=== PATIENT | female | born 1980 | race Caucasian/White ===

== ENCOUNTER 2016-10-10 09:36 | Emergency (ER) | payer OTHER ==
[2016-10-10] MEDS ORDERED: MELOXICAM15 M1 PO (11:38)
[2016-10-10] MEDS ORDERED: ADVAIR 100-501 EACH PO (11:38)
[2016-10-10] MEDS ORDERED: ASPIRIN81 M1 PO (11:38)
[2016-10-10] MEDS ORDERED: MULTIPLE VITAM1 EAC4 PO (11:38)
[2016-10-10] MEDS ORDERED: BIRTH CONTROL PO (11:38)
[2016-10-10] MEDS ORDERED: FLONASE ALLERG9.9 ML (11:38)
[2016-10-10] MEDS ORDERED: KRILL OIL PO (11:39)
[2016-10-10 12:53] LABS: BASO % 0.1 % (0-2); EOSINOPHIL ABSOLUTE COUNT 0.1 tho/cmm (0.0-0.7); HCT-HEMATOCRIT 38.8 % (34.0-49.0); HGB-HEMOGLOBIN 13.2 gm/dl (12.0-15.5); IMMATURE GRANULOCYTES ABSOLUTE 0.03 tho/cmm (0-0.03); IMMATURE GRANULOCYTES PERCENT 0.2 % (0-0.3); LYMPH % 11.3 % (20-45); LYMPH ABSOLUTE COUNT 1.6 tho/cmm (0.8-4.5); MCH (MEAN CORPUSCULAR HGB) 28.4 pg (28.0-32.0); MCV (MEAN CELL VOLUME) 83.6 fl (82.0-96.0); MEAN PLATELET VOLUME 10.5 cmc (9.4-12.4); MONO % 3.8 % (0-12); MONOCYTE ABSOLUTE COUNT 0.5 tho/cmm (0.0-1.2); NEUTROPHIL ABSOLUTE COUNT 11.6 tho/cmm (1.6-8.0); NEUTROPHIL-AUTOMATED 11.6 tho/cmm (1.6-8.0); NEUTROPHILS % 83.6 % (40-80); PLATELET COUNT 269 tho/cmm (150-450); RED BLOOD COUNT 4.64 mil/cmm (4.00-5.20); WHITE BLOOD COUNT 13.8 tho/cmm (4.0-10.0)
[2016-10-10 12:55] LABS: URINE BILIRUBIN NEGATIVE (NEG); URINE BLOOD SMALL (NEG); URINE GLUCOSE (UA) NEGATIVE (NEG); URINE KETONE MODERATE (NEG); URINE LEUKOCYTE ESTERASE POSITIVE (NEG); URINE NITRITE NEGATIVE (NEG); URINE PROTEIN SMALL (NEG); URINE SPECIFIC GRAVITY 1.025 (1.003-1.030)
[2016-10-10 12:58] LABS: PREGNANCY-SERUM NEGATIVE (NEGATIVE); URINE APPEARANCE HAZY; URINE COLOR YELLOW
[2016-10-10 13:05] LABS: ALB/GLOB RATIO 0.7 (0.8-2.0); ALBUMIN 3.2 g/dl (3.5-5.0); ALKALINE PHOSPHATASE 60 U/L (33-138); ALT/SGPT 22 U/L (12-78); ANION GAP 14 mmol/L (0-20); AST/SGOT 20 U/L (10-40); BILIRUBIN,TOTAL 0.3 mg/dl (0-1.5); BLOOD UREA NITROGEN 23 mg/dl (6-24); CALCIUM 8.7 mg/dl (8.5-10.5); CARBON DIOXIDE-VENOUS 24 mmol/L (22-32); CHLORIDE 105 mmol/l (96-110); CREATININE 0.97 mg/dl (0.50-1.10); GLUCOSE 114 mg/dL (70-110); LIPASE 188 U/L (73-393); POTASSIUM 3.8 mmol/L (3.7-5.1); SODIUM 139 mmol/L (135-145); eGFR VALUE FOR BLACK 86 mL/Min
[2016-10-10 13:15] LABS: URINE RBC 0-1 /[HPF] (0-5)
[2016-10-10] MEDS ORDERED: PERCOCET 5-3251 EACH PO (13:57)
[2016-10-10] MEDS ORDERED: FLOMAX0.4 M1 PO (13:57)
== END 2016-10-10 14:13 ==
LOC: EDMED 09:36
PROVIDERS: Physician Assistant
DX: N13.2 Hydronephrosis with renal and ureteral calculous obstruction (principal); I10 Essential (primary) hypertension; J45.909 Unspecified asthma, uncomplicated; Z98.890 Other specified postprocedural states; Z79.82 Long term (current) use of aspirin; Z79.899 Other long term (current) drug therapy
CPT/HCPCS: J1885; J2405; J7030